=== PATIENT | male | born 1955 ===

== ENCOUNTER 2018-05-05 16:43 | Emergency (ER) | payer BC, SELFPAY ==
[2018-05-05] MEDS ORDERED: Adacel (T-DAP) 0.5 ML SYRINGE ONE (18:51)
[2018-05-05] MEDS ORDERED: Ketorolac Tromethamine 60 MG/2 ML VIAL ONE (18:52)
--- NOTE | 2018-05-05 19:16 | RAD ---
FOUR VIEWS CERVICAL SPINE INCLUDING AP, LATERAL, OPEN MOUTH ODONTOID AND SUBMENTAL VERTEX VIEWS: 05/05/18 Four views cervical spine demonstrate disc space height loss with anterior osteophytes and posterior osteophytes at C4-5 and C5-6 and C6-7. This is compatible with changes of spondylosis. The odontoid is unremarkable. No evidence of prevertebral soft tissue swelling seen. No evidence of a cute cervical spine fracture seen. IMPRESSION: Mid and lower cervical changes of spondylosis with no evidence of acute abnormality seen. POS: ENRRIQUE
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
== END 2018-05-05 19:37 | disposition home or self-care (01) ==
LOC: ERS 16:43
DX: T14.8XXA Other injury of unspecified body region, initial encounter (principal); M54.2 Cervicalgia; M54.5 Low back pain; E78.00 Pure hypercholesterolemia, unspecified; I10 Essential (primary) hypertension; F41.9 Anxiety disorder, unspecified; V43.52XA Car driver injured in collision with other type car in traffic accident, initial encounter
CPT/HCPCS: 72040; 72100; 90471; 90715; 96372; J1885